=== PATIENT | male | born 1995 | race Caucasian/White ===

== ENCOUNTER 2022-08-23 06:42 | Emergency (ER) | payer MEDICAID, OTHER ==
[~2022-08-23] VITALS: Ht 167.6 cm; Wt 63.6 kg
[2022-08-23 07:26] VITALS: BP 132/72
[2022-08-23] MEDS ORDERED: LORazepam 1 MG TABLET PO ONE (08:00)
== END 2022-08-23 09:38 | disposition home or self-care (01) ==
LOC: EMS 06:43
DX: F41.9 Anxiety disorder, unspecified (principal); F32.9 Major depressive disorder, single episode, unspecified; F10.20 Alcohol dependence, uncomplicated; F12.90 Cannabis use, unspecified, uncomplicated
CPT/HCPCS: 99283